=== PATIENT | male | born 1995 | race African-American/Black ===

== ENCOUNTER 2020-12-02 14:08 | Emergency (ER) | payer SELFPAY ==
[~2020-12-02] VITALS: Ht 185.4 cm; Wt 77.0 kg
[2020-12-02 14:09] VITALS: BP 130/74
[2020-12-02] MEDS ORDERED: KETOROLAC 30MG/ML VIAL IM ONE (14:45)
[2020-12-02] MEDS ORDERED: CYCLOBENZAPRINE 10MG TABLET PO ONE (14:45)
[2020-12-02] MEDS ORDERED: IBUP-2029 MT (15:47)
== END 2020-12-02 16:08 | disposition home or self-care (01) ==
LOC: ER 14:08
DX: S20.219A Contusion of unspecified front wall of thorax, initial encounter (principal); J45.909 Unspecified asthma, uncomplicated; K21.9 Gastro-esophageal reflux disease without esophagitis; V49.9XXA Car occupant (driver) (passenger) injured in unspecified traffic accident, initial encounter; Y93.89 Activity, other specified; Y92.89 Other specified places as the place of occurrence of the external cause; Y99.8 Other external cause status
CPT/HCPCS: 71045; 96372; 99283; J1885